=== PATIENT | female | born 1955 | race American Indian/Alaskan Native ===

== ENCOUNTER 2018-01-25 11:44 | Emergency (ER) | payer SELFPAY ==
[2018-01-25 12:32] LABS: Bacteria,Urine 1+ /HPF (Negative); Bilirubin,Urine NEG (Negative); Blood,Urine SM (Negative); Color,Urine Straw (Yellow); Mucus,Urine FEW /HPF; Protein,Urine <15 mg/dL mg/dL (Negative); Urobilinogen,Urine < 2.0 mg/dL (<2.0); WBC,Urine < 1.0 /HPF (0.0-6.0)
[2018-01-25 12:40] LABS: Basophils % (Auto) 0.8 % (0.0-1.8); Eosinophils # (Auto) 0.1 K/mm3 (0.0-0.4); Eosinophils % (Auto) 1.9 % (0.0-4.3); Hematocrit 36.4 % (30.3-42.9); Hemoglobin 11.8 gm/dl (10.1-14.3); Lymphocytes # (Auto) 1.6 K/mm3 (1.2-5.4); Lymphocytes % (Auto) 29.9 % (13.4-35.0); Mean Corpuscular HGB Conc 33 % (30-34); Mean Corpuscular Hemoglobin 27 pg (28-32); Mean Corpuscular Volume 83 fl (79-97); Monocytes # (Auto) 0.4 K/mm3 (0.0-0.8); Monocytes % (Auto) 7.9 % (0.0-7.3); Platelet Count 295 K/mm3 (140-440); Red Blood Count 4.38 M/mm3 (3.65-5.03); Red Cell Distribution Width 14.3 % (13.2-15.2)
[2018-01-25 12:50] LABS: Amphetamine Screen,Urine PRESUMPTIVE NEGATIVE; Benzodiazepines Screen,Urine PRESUMPTIVE NEGATIVE; Cannabinoid Screen,Urine PRESUMPTIVE NEGATIVE; Cocaine Screen,Urine PRESUMPTIVE NEGATIVE; Methadone Screen,Urine PRESUMPTIVE NEGATIVE; Opiate Screen,Urine PRESUMPTIVE NEGATIVE
[2018-01-25 12:59] LABS: BUN/Creatinine Ratio 23; Blood Urea Nitrogen 14 mg/dL (7-17); Calcium 9.4 mg/dL (8.4-10.2); Hemolysis Index 4
[2018-01-25] MEDS ORDERED: MOTRIN PO PRN (13:10)
[2018-01-25] MEDS ORDERED: PROAIR IH PRN (13:10)
[2018-01-25] MEDS ORDERED: PROVENTIL IH PRN (13:22)
[2018-01-25] MEDS ORDERED: INDERAL PO SCH (14:00)
--- NOTE | 2018-01-25 14:17 | Emergency Department Report ---
ED Psych HPI - General Chief Complaint: Psych Stated Complaint: MH/1013 Time Seen by Provider: 01/25/18 12:23 Source: patient Mode of arrival: Ambulatory Limitations: No Limitations - History of Present Illness Initial Comments: 62-year-old female with a past medical history of diabetes, HTN, anxiety, and depression presents to the hospital complains of suicidal ideation and depressive symptoms. Patient follows with [facility] every 3 months and went to her scheduled visit today. She was referred to the ER with a signed 1013 for severe depression and anxiety with suicidal thoughts. Patient states she is overwhelmed because she is financially supporting her adult son. She also states her job is stressful and the people are rude to her. She has been able to fill her anxiety medication (propanolol) because she did not have enough money and filled her sleeping medication (mirtazapine) instead. She is otherwise compliant with her other medication. History of suicide attempt via overdose at age 18. Plan this time is to either overdose on sleeping pills and never wake up or to crash her car. Patient expresses chronic pain but no acute pain or injury reported at this time. - Related Data Home Medications Medication Instructions Recorded Confirmed Last Taken Albuterol Sulfate [Ventolin HFA] 2 puff IH Q4H PRN 01/25/18 01/25/18 Unknown Exenatide [Byetta] 10 mcg SQ DAILY 01/25/18 01/25/18 Unknown Ferrous Sulfate [Slow Release Iron 5 gram PO DAILY 01/25/18 01/25/18 Unknown 47.5 Mg tab] Fluticasone/Salmeterol [Advair 1 puff IH BID 01/25/18 01/25/18 Unknown Diskus 500-50 mcg] Hydrochlorothiazide [HCTZ] 25 mg PO QDAY 01/25/18 01/25/18 Unknown Ibuprofen 800 mg PO Q4HRT PRN 01/25/18 01/25/18 Unknown Lovastatin [Altoprev] 20 mg PO QPM 01/25/18 01/25/18 Unknown Mirtazapine 15 mg PO DAILY 01/25/18 01/25/18 Unknown Montelukast [Singulair] 10 mg PO QPM 01/25/18 01/25/18 Unknown Naproxen [Naprosyn] 500 mg PO BID 01/25/18 01/25/18 Unknown Propranolol [Inderal] 10 mg PO ONCE 01/25/18 01/25/18 Unknown Vortioxetine Hydrobromide 10 mg PO DAILY 01/25/18 01/25/18 Unknown [Trintellix] Allergies Allergy/AdvReac Type Severity Reaction Status Date / Time codeine Allergy Headache Verified 01/25/18 12:11 ED Review of Systems ROS: Stated complaint: MH/1013 Other details as noted in HPI Comment: All other systems reviewed and negative Other: Constitutional: No fevers chills Eyes: No eye pain visual changes ENT: No ear pain or throat pain Neck: Denies pain Respiratory: Denies cough wheezing shortness of breath Cardiovascular: Denies chest pain, palpitations, syncope GI: Denies abdominal pain, nausea, vomiting, diarrhea : Denies dysuria Musculoskeletal: Denies back pain, joint swelling Skin: Denies rash, lesions, erythema Neurologic: Denies headache, numbness, weakness Psychiatric:as per HPI ED Past Medical Hx - Past Medical History Hx Hypertension: Yes - Social History Smoking Status: Never Smoker Substance Use Type: None - Medications Home Medications: Home Medications Medication Instructions Recorded Confirmed Last Taken Type Albuterol Sulfate [Ventolin HFA] 2 puff IH Q4H PRN 01/25/18 01/25/18 Unknown History Exenatide [Byetta] 10 mcg SQ DAILY 01/25/18 01/25/18 Unknown History Ferrous Sulfate [Slow Release Iron 5 gram PO DAILY 01/25/18 01/25/18 Unknown History 47.5 Mg tab] Fluticasone/Salmeterol [Advair 1 puff IH BID 01/25/18 01/25/18 Unknown History Diskus 500-50 mcg] Hydrochlorothiazide [HCTZ] 25 mg PO QDAY 01/25/18 01/25/18 Unknown History Ibuprofen 800 mg PO Q4HRT PRN 01/25/18 01/25/18 Unknown History Lovastatin [Altoprev] 20 mg PO QPM 01/25/18 01/25/18 Unknown History Mirtazapine 15 mg PO DAILY 01/25/18 01/25/18 Unknown History Montelukast [Singulair] 10 mg PO QPM 01/25/18 01/25/18 Unknown History Naproxen [Naprosyn] 500 mg PO BID 01/25/18 01/25/18 Unknown History Propranolol [Inderal] 10 mg PO ONCE 01/25/18 01/25/18 Unknown History Vortioxetine Hydrobromide 10 mg PO DAILY 01/25/18 01/25/18 Unknown History [Trintellix] ED Physical Exam - General Limitations: No Limitations - Other Other exam information: General: No limitations, patient is alert in no acute distress Head exam: Atraumatic, normocephalic Eyes exam: Normal appearance ENT: Moist mucous membrane, normal oropharynx Neck exam: Normal inspection, full range of motion, no meningismus nontender Respiratory exam: Clear to auscultation bilateral, no wheezes, rales, crackles Cardiovascular: Normal rate and rhythm, normal heart sounds Abdomen: Soft, nondistended, and nontender, with normal bowel sounds, no rebound, or guarding Extremity: Full range of motion normal inspection no deformity Back: Normal Inspection, full range of motion, no tenderness Neurologic: Alert, oriented x3, cranial nerves intact, no motor or sensory deficit Psychiatric: Tearful depressed affect Skin: Warm, dry, intact ED Course Vital Signs 01/25/18 12:11 Temperature 98.1 F Pulse Rate 82 Respiratory 18 Rate Blood Pressure 148/99 O2 Sat by Pulse 100 Oximetry ED Medical Decision Making - Lab Data Result diagrams: 01/25/18 12:26 01/25/18 12:26 Lab Results 01/25/18 01/25/18 01/25/18 Range/Units 12:16 12:16 12:26 WBC (4.5-11.0) K/mm3 RBC (3.65-5.03) M/mm3 Hgb (10.1-14.3) gm/dl Hct (30.3-42.9) % MCV (79-97) fl MCH (28-32) pg MCHC (30-34) % RDW (13.2-15.2) % Plt Count (140-440) K/mm3 Lymph % (Auto) (13.4-35.0) % [place] % (Auto) (0.0-7.3) % Eos % (Auto) (0.0-4.3) % Baso % (Auto) (0.0-1.8) % Lymph # (1.2-5.4) K/mm3 [place] # (0.0-0.8) K/mm3 Eos # (0.0-0.4) K/mm3 Baso # (0.0-0.1) K/mm3 Seg Neutrophils % (40.0-70.0) % Seg Neutrophils # (1.8-7.7) K/mm3 Sodium (137-145) mmol/L Potassium (3.6-5.0) mmol/L Chloride (98-107) mmol/L Carbon Dioxide (22-30) mmol/L Anion Gap mmol/L BUN (7-17) mg/dL Creatinine (0.7-1.2) mg/dL Estimated GFR ml/min BUN/Creatinine Ratio % Glucose (65-100) mg/dL Calcium (8.4-10.2) mg/dL Urine Color Straw (Yellow) Urine Turbidity Clear (Clear) Urine pH 7.0 (5.0-7.0) Ur Specific [place] 1.006 (1.003-1.030) Urine Protein <15 mg/dl (Negative) mg/dL Urine Glucose (UA) Neg (Negative) mg/dL Urine Ketones Neg (Negative) mg/dL Urine Blood Sm (Negative) Urine Nitrite Neg (Negative) Urine Bilirubin Neg (Negative) Urine Urobilinogen < 2.0 (<2.0) mg/dL Ur Leukocyte Esterase Neg (Negative) Urine WBC (Auto) < 1.0 (0.0-6.0) /HPF Urine RBC (Auto) 1.0 (0.0-6.0) /HPF Urine Bacteria (Auto) 1+ (Negative) /HPF Urine Mucus Few /HPF Salicylates < 0.3 L (2.8-20.0) mg/dL Urine Opiates Screen Presumptive negative Urine Methadone Screen Presumptive negative Acetaminophen (10.0-30.0) ug/mL Ur Barbiturates Screen Presumptive negative Ur Phencyclidine Scrn Presumptive negative Ur Amphetamines Screen Presumptive negative U Benzodiazepines Scrn Presumptive negative Urine Cocaine Screen Presumptive negative U Marijuana (THC) Screen Presumptive negative Drugs of Abuse Note Disclamer Plasma/Serum Alcohol (0-0.07) % 01/25/18 01/25/18 01/25/18 Range/Units 12:26 12:26 12:26 WBC (4.5-11.0) K/mm3 RBC (3.65-5.03) M/mm3 Hgb (10.1-14.3) gm/dl Hct (30.3-42.9) % MCV (79-97) fl MCH (28-32) pg MCHC (30-34) % RDW (13.2-15.2) % Plt Count (140-440) K/mm3 Lymph % (Auto) (13.4-35.0) % [place] % (Auto) (0.0-7.3) % Eos % (Auto) (0.0-4.3) % Baso % (Auto) (0.0-1.8) % Lymph # (1.2-5.4) K/mm3 [place] # (0.0-0.8) K/mm3 Eos # (0.0-0.4) K/mm3 Baso # (0.0-0.1) K/mm3 Seg Neutrophils % (40.0-70.0) % Seg Neutrophils # (1.8-7.7) K/mm3 Sodium 140 (137-145) mmol/L Potassium 4.3 (3.6-5.0) mmol/L Chloride 100.0 (98-107) mmol/L Carbon Dioxide 28 (22-30) mmol/L Anion Gap 16 mmol/L BUN 14 (7-17) mg/dL Creatinine 0.6 L (0.7-1.2) mg/dL Estimated GFR > 60 ml/min BUN/Creatinine Ratio 23 % Glucose 109 H (65-100) mg/dL Calcium 9.4 (8.4-10.2) mg/dL Urine Color (Yellow) Urine Turbidity (Clear) Urine pH (5.0-7.0) Ur Specific [place] (1.003-1.030) Urine Protein (Negative) mg/dL Urine Glucose (UA) (Negative) mg/dL Urine Ketones (Negative) mg/dL Urine Blood (Negative) Urine Nitrite (Negative) Urine Bilirubin (Negative) Urine Urobilinogen (<2.0) mg/dL Ur Leukocyte Esterase (Negative) Urine WBC (Auto) (0.0-6.0) /HPF Urine RBC (Auto) (0.0-6.0) /HPF Urine Bacteria (Auto) (Negative) /HPF Urine Mucus /HPF Salicylates (2.8-20.0) mg/dL Urine Opiates Screen Urine Methadone Screen Acetaminophen < 15.0 (10.0-30.0) ug/mL Ur Barbiturates Screen Ur Phencyclidine Scrn Ur Amphetamines Screen U Benzodiazepines Scrn Urine Cocaine Screen U Marijuana (THC) Screen Drugs of Abuse Note Plasma/Serum Alcohol < 0.01 (0-0.07) % 01/25/18 Range/Units 12:26 WBC 5.4 (4.5-11.0) K/mm3 RBC 4.38 (3.65-5.03) M/mm3 Hgb 11.8 (10.1-14.3) gm/dl Hct 36.4 (30.3-42.9) % MCV 83 (79-97) fl MCH 27 L (28-32) pg MCHC 33 (30-34) % RDW 14.3 (13.2-15.2) % Plt Count 295 (140-440) K/mm3 Lymph % (Auto) 29.9 (13.4-35.0) % [place] % (Auto) 7.9 H (0.0-7.3) % Eos % (Auto) 1.9 (0.0-4.3) % Baso % (Auto) 0.8 (0.0-1.8) % Lymph # 1.6 (1.2-5.4) K/mm3 [place] # 0.4 (0.0-0.8) K/mm3 Eos # 0.1 (0.0-0.4) K/mm3 Baso # 0.0 (0.0-0.1) K/mm3 Seg Neutrophils % 59.5 (40.0-70.0) % Seg Neutrophils # 3.2 (1.8-7.7) K/mm3 Sodium (137-145) mmol/L Potassium (3.6-5.0) mmol/L Chloride (98-107) mmol/L Carbon Dioxide (22-30) mmol/L Anion Gap mmol/L BUN (7-17) mg/dL Creatinine (0.7-1.2) mg/dL Estimated GFR ml/min BUN/Creatinine Ratio % Glucose (65-100) mg/dL Calcium (8.4-10.2) mg/dL Urine Color (Yellow) Urine Turbidity (Clear) Urine pH (5.0-7.0) Ur Specific [place] (1.003-1.030) Urine Protein (Negative) mg/dL Urine Glucose (UA) (Negative) mg/dL Urine Ketones (Negative) mg/dL Urine Blood (Negative) Urine Nitrite (Negative) Urine Bilirubin (Negative) Urine Urobilinogen (<2.0) mg/dL Ur Leukocyte Esterase (Negative) Urine WBC (Auto) (0.0-6.0) /HPF Urine RBC (Auto) (0.0-6.0) /HPF Urine Bacteria (Auto) (Negative) /HPF Urine Mucus /HPF Salicylates (2.8-20.0) mg/dL Urine Opiates Screen Urine Methadone Screen Acetaminophen (10.0-30.0) ug/mL Ur Barbiturates Screen Ur Phencyclidine Scrn Ur Amphetamines Screen U Benzodiazepines Scrn Urine Cocaine Screen U Marijuana (THC) Screen Drugs of Abuse Note Plasma/Serum Alcohol (0-0.07) % - Medical Decision Making Patient is medically cleared. No acute physical complaints. Labs and UA unremarkable. 1013 and transfer forms signed Patient awaiting psychiatric acceptance - Differential Diagnosis suicidal, depression, medication noncompliance Critical Care Time: No Critical care attestation.: If time is entered above; I have spent that time in minutes in the direct care of this critically ill patient, excluding procedure time. ED Disposition Clinical Impression: Depression, Suicidal ideations, Medical clearance for psychiatric admission Disposition: [id number]/TX-65 PSY HOSP/PSY UNIT Is pt being admited?: No Condition: Stable Time of Disposition: 14:23 (Dr Munoz/hosp)
[2018-01-25] MEDS: SINGULAIR PO SCH (17:55)
[2018-01-25] MEDS ORDERED: NON-FORMULARY (Lovastatin [Altoprev] 20 MG) PO SCH (18:00)
[2018-01-25] MEDS: PULMICORT IH SCH (21:24)
[2018-01-25] MEDS: BROVANA NEBU IH SCH (21:25)
[2018-01-25] MEDS ORDERED: EXENATIDE 10 MCG SQ SCH (22:00)
[2018-01-25] MEDS ORDERED: NAPROSYN PO SCH (22:00)
[2018-01-25] MEDS ORDERED: NON-FORMULARY (Fluticasone/Salmeterol [Advair Diskus 500-50 Mcg] 1 PUFF) IH SCH (22:00)
[2018-01-25] MEDS: REMERON PO SCH (22:18)
[2018-01-25] MEDS: PRAVACHOL PO SCH (22:18)
[2018-01-26] MEDS ORDERED: NON-FORMULARY (Vortioxetine Hydrobromide [Trintellix] 10 MG) PO SCH (10:00)
[2018-01-26] MEDS: HCTZ PO SCH (10:20)
[2018-01-26] MEDS: PULMICORT IH SCH ×2 (10:31→20:21)
[2018-01-26] MEDS: BROVANA NEBU IH SCH ×2 (10:31→20:20)
[2018-01-26] MEDS: FEOSOL PO SCH (10:55)
[2018-01-26] MEDS ORDERED: MOTRIN PO PRN (11:00)
--- NOTE | 2018-01-26 12:31 | Consultation ---
History of Present Illness - Reason for Consult Consult date: 01/26/18 Reason for consult: Mental Health Evaluation Requesting physician: SHRAVAN SANTOS - Chief Complaint Chief complaint: "I don't know what I said" - History of Present Psychiatric Illness 62-year-old female with a past medical history of diabetes, HTN, anxiety, and depression presents to the hospital complains of suicidal ideation and depressive symptoms. Today the patient is calm and cooperative during the assessment. She stated that she made some comments at [facility] reference being "tired and overwhelmed with life." She could not confirm or deny saying that she was suicidal at [facility] and or during triage in the ER. She stated that she is experiencing life stressors especially financial at this time. She stated that her son reside with her and he isn't working a lot, so the financial responsibility falls on her. She stated this has been a major problem in their home. She stated a suicidal attempt at the age of 18. She denies SI/HI's and AVH's. She denies being anxious, any manic episodes, and a poor appetite. She denies recreational drug use and alcohol consumption (etoh). Medications and Allergies Allergies Allergy/AdvReac Type Severity Reaction Status Date / Time codeine Allergy Headache Verified 01/25/18 12:11 Home Medications Medication Instructions Recorded Confirmed Last Taken Type Albuterol Sulfate [Ventolin HFA] 2 puff IH Q4H PRN 01/25/18 01/25/18 Unknown History Exenatide [Byetta] 10 mcg SQ DAILY 01/25/18 01/25/18 Unknown History Ferrous Sulfate [Slow Release Iron 5 gram PO DAILY 01/25/18 01/25/18 Unknown History 47.5 Mg tab] Fluticasone/Salmeterol [Advair 1 puff IH BID 01/25/18 01/25/18 Unknown History Diskus 500-50 mcg] Hydrochlorothiazide [HCTZ] 25 mg PO QDAY 01/25/18 01/25/18 Unknown History Ibuprofen 800 mg PO Q4HRT PRN 01/25/18 01/25/18 Unknown History Lovastatin [Altoprev] 20 mg PO QPM 01/25/18 01/25/18 Unknown History Mirtazapine 15 mg PO DAILY 01/25/18 01/25/18 Unknown History Montelukast [Singulair] 10 mg PO QPM 01/25/18 01/25/18 Unknown History Naproxen [Naprosyn] 500 mg PO BID 01/25/18 01/25/18 Unknown History Propranolol [Inderal] 10 mg PO ONCE 01/25/18 01/25/18 Unknown History Vortioxetine Hydrobromide 10 mg PO DAILY 01/25/18 01/25/18 Unknown History [Trintellix] Active Meds: Active Medications Albuterol (Proventil) 2.5 mg IH Q4HRT PRN PRN Reason: Shortness Of Breath Arformoterol Tartrate (Brovana Nebu) 15 mcg IH Q12HRT [facility] Last Admin: 01/26/18 10:31 Dose: Not Given Budesonide (Pulmicort) 1 mg IH Q12HRT [facility] Last Admin: 01/26/18 10:31 Dose: Not Given Ferrous Sulfate (Feosol) 325 mg PO QDAY [facility] Last Admin: 01/26/18 10:55 Dose: 325 mg Hydrochlorothiazide (Hctz) 25 mg PO QDAY [facility] Last Admin: 01/26/18 10:20 Dose: 25 mg Ibuprofen (Motrin) 800 mg PO Q8HR PRN PRN Reason: Pain Last Admin: 01/26/18 11:16 Dose: 800 mg Mirtazapine (Remeron) 15 mg PO QHS [facility] Last Admin: 01/25/18 22:18 Dose: 15 mg Miscellaneous Medication (Exenatide [Byetta]) 10 mcg SQ BID [facility] Miscellaneous Medication (Vortioxetine Hydrobromide [Trintellix]) 10 mg PO DAILY [facility] Montelukast Sodium (Singulair) 10 mg PO QPM [facility] Last Admin: 01/25/18 17:55 Dose: 10 mg Pravastatin Sodium (Pravachol) 20 mg PO QHS [facility] Last Admin: 01/25/18 22:18 Dose: 20 mg Propranolol HCl (Inderal) 10 mg PO ONCE [facility] Past psychiatric history - Past Medical History Past Medical History: hypertension Past Surgical History: No surgical history - past Psychiatric treatment and history Psych: Depression psychiatric treatment history: Seen at [facility] for depression. Fam psy hx of Mood DO's. - Social History Social history: lives with family Mental Status Exam - Vital signs Last Vital Signs Temp 98 F 01/26/18 10:00 Pulse 75 01/26/18 10:00 Resp 18 01/26/18 11:53 BP 100/60 01/26/18 10:00 Pulse Ox 96 01/26/18 11:53 - Exam Narrative exam: MSE: Appearance: calm, cooperative Behavior: regular eye contact Speech: regular rate and tone Mood: "okay" Affect: congruent to mood Thought Process: circumstantial Thought Content: denies SI/HI's and AVH's Motor Activity: sitting up in bed Cognition: A/O x3 Insight: variable Judgment: variable Results Result Diagrams: 01/25/18 12:26 01/25/18 12:26 Abnormal lab results 01/25/18 01/25/18 01/25/18 Range/Units 12:26 12:26 12:26 MCH 27 L (28-32) pg [place] % (Auto) 7.9 H (0.0-7.3) % Creatinine 0.6 L (0.7-1.2) mg/dL Glucose 109 H (65-100) mg/dL Salicylates < 0.3 L (2.8-20.0) mg/dL All other labs normal. Assessment and Plan Assessment and plan: Impression: Hx of Depression. Today the patient is calm and cooperative during the assessment. DDx: R/O Bipolar DO Recommendation/Plan: Continue 1013 and gather collateral information to determine proper dispo. Continue Remeron 15 mg PO HS for depression. The patient takes Trintellix for depression that's not on formulary. She stated that her son can bring the medication to the hospital. Discussed possible suicidality/medication induced nicki with patient reference Remeron. Discussed generalized coping skills with patient.
[2018-01-26] MEDS: SINGULAIR PO SCH (18:12)
[2018-01-26] MEDS: REMERON PO SCH (21:46)
[2018-01-26] MEDS: PRAVACHOL PO SCH (21:46)
--- NOTE | 2018-01-27 11:06 | Progress Note ---
Subjective - Reason for Consult Consult date: 01/27/18 Reason for consult: Psychiatry Follow-up - Chief Complaint Chief complaint: "I feel so much better" 62-year-old female with a past medical history of diabetes, HTN, anxiety, and depression presents to the hospital complains of suicidal ideation and depressive symptoms. Today the patient is calm and cooperative during the assessment. She stated that she feel so much better "mentally and rested." She stated talking with both her son and they have came up with a plan to lessen their financial burden overall. She stated that she can follow up with [facility] for outpatient psy services. Per collateral information from her son Rohit Hooper at [phone], he stated that he feel like his mother was overwhelmed prior to her admission to [facility]. He stated that he don't believe that his mother was suicidal. He stated that his mother is compliant with her medications and always show up for her appts at [facility]. He stated that he will pick his mother up once she is discharged. The patient denies SI/HI's and AVH's. She denies any side effects of her medications. Mental Status Exam - Vital signs Last Vital Signs Temp 98.0 F 01/27/18 10:00 Pulse 87 01/27/18 10:00 Resp 18 01/27/18 10:00 BP 114/71 01/27/18 10:00 Pulse Ox 100 01/27/18 10:00 - Exam Narrative exam: MSE: Appearance: calm, cooperative Behavior: regular eye contact Speech: regular rate and tone Mood: "okay" Affect: congruent to mood Thought Process: logical Thought Content: denies SI/HI's and AVH's Motor Activity: sitting up in bed Cognition: A/O x3 Insight: appropriate Judgment: appropriate Assessment and Plan Impression: Hx of Depression. Today the patient is calm and cooperative during the assessment. The patient is no threat to self. DDx: R/O Bipolar DO Recommendation/Plan: Rescind 1013. Continue Remeron 15 mg PO HS for depression. Discussed possible suicidality/medication induced nicki with patient reference Remeron. Discussed generalized coping skills with patient. The patient can follow up with [facility] for outpatient psy services.
[2018-01-27] MEDS: FEOSOL PO SCH (11:33)
[2018-01-27] MEDS: HCTZ PO SCH (11:36)
[2018-01-27] MEDS ORDERED: SENOKOT PO ONE (13:00)
--- NOTE | 2018-01-27 15:35 | Emergency Department Report ---
Blank Doc - Documentation Documentation: I was asked by psychiatry to prepare some discharge orders for this patient as the 1013 has been rescinded by them. The patient apparently originally presented for some depression and suicidal ideation secondary to some financial burden and overall stress. She was seen today and is calm and appropriate, has the capacity to make her own decisions, and denies any suicidal ideations. She feels well rested and has been in discussion with her son about what they can do to lessen her stress and burden. I briefly saw the patient as well and she does deny any suicidal ideations. She has been set up for outpatient follow-up with the [facility].
[2018-01-27 16:01] VITALS: BP 112/72
== END 2018-01-27 16:15 ==
LOC: ED 11:44
DX: F32.9 Major depressive disorder, single episode, unspecified (principal); F41.9 Anxiety disorder, unspecified; I10 Essential (primary) hypertension; Z88.5 Allergy status to narcotic agent; Z79.899 Other long term (current) drug therapy
CPT/HCPCS: 36415; 80048; 80307; 81001; 85025; 99284; A9270; G0480; 80320; 94640